=== PATIENT | male | born 1980 | race Caucasian/White ===

== ENCOUNTER 2019-06-12 18:40 | Emergency (ER) | payer OTHER ==
[~2019-06-12] VITALS: Ht 190.5 cm; Wt 122.5 kg
[2019-06-12 18:57] VITALS: BP 144/94
[2019-06-12 19:26] LABS: Urine Bacteria NONE SEEN /hpf (None Seen); Urine Blood Negative /uL (Negative); Urine Mucus FEW (None Seen); Urine Specific Gravity 1.027 (1.001-1.035); Urine WBC 1 /hpf (0 - 3)
== END 2019-06-12 20:24 | disposition home or self-care (01) ==
LOC: ER 18:40
DX: N43.3 Hydrocele, unspecified (principal)
CPT/HCPCS: 76870; 81001